=== PATIENT | female | born 1990 | race African-American/Black ===

== ENCOUNTER 2016-06-09 11:45 | Emergency (ER) | payer SELFPAY ==
[2016-06-09 12:05] VITALS: BP 118/59
--- NOTE | 2016-06-09 12:31 | ED Physician Documentation ---
Sore Throat/Dental Pain - HISTORIAN Historian: patient - HPI Stated Complaint: Dental pain Chief Complaint: Dental Pain Additional Information: fx tooth 1 yr ago then another 3 mo ago recent exab pain swelling tenderness Context: Fractured Tooth Associated Symptoms: fever, moderate. denies: unable to swallow, runny nose, congestion Worsened By: heat, cold - ROS CONST: no problems CVS/RESP: none GI/: denies: problems urinating, nausea, vomiting MS/SKIN/LYMPH: muscle aches. denies: rash, leg swelling NEURO/PSYCH: none - PAST HX Past History: other (htn) Allergies/Adverse Reactions: Allergies Allergy/AdvReac Type Severity Reaction Status Date / Time No Known Allergies Allergy Verified 06/09/16 12:00 Home Medications: Ambulatory Orders Medication Instructions Recorded Amoxicillin [Amoxil] 500 mg PO QID #40 capsule 06/09/16 - SOCIAL HX Smoking History: less than 1 pack/day Alcohol Use: none Drug Use: none - FAMILY HX Family History: No - VITAL SIGNS Vital Signs: Vital Signs Temp Pulse Resp BP Pulse Ox 99.3 F 84 16 118/59 97 06/09/16 12:01 06/09/16 12:01 06/09/16 12:01 06/09/16 12:01 06/09/16 12:01 - REVIEWED ASSESSMENTS Nursing Assessment Reviewed: Yes Vitals Reviewed: Yes Dental Pain Physical Exam - EXAM General Appearance: mild distress, moderate distress Head/Neck: head nml inspection, trachea midline, no lymphadenopathy Eyes: eyes nml inspection Mouth/Throat: lips nml, pharynx nml, dental tenderness, gum swelling around teeth. No: gums nml, widespread dental decay Ear/Nose: nml inspection Respiratory: breath sounds nml. No: respiratory distress CVS: reg. rate & rhythm, heart sounds nml Abdomen: soft, non-tender Extremities: non-tender, nml ROM Skin: warm/dry, normal color. No: cyanosis, diaphoresis, jaundice Neuro/Psych: No: weakness, numbness, anxiety Discharge Clincal Impression: fractured teeth w/sepsis Prescriptions: Amoxicillin [Amoxil] 500 mg PO QID #40 capsule Home Medications: Ambulatory Orders Amoxicillin [Amoxil] 500 mg PO QID #40 capsule 06/09/16 Comments: amox pt preferred no analgesics Condition: Good Disposition: HOME, SELF-CARE Decision to Admit: NO Decision Time: 12:34
== END 2016-06-09 12:31 | disposition home or self-care (01) ==
LOC: ED 11:45
DX: K02.9 Dental caries, unspecified (principal)
CPT/HCPCS: 99283

== ENCOUNTER 2016-11-10 12:10 | Emergency (ER) | payer SELFPAY ==
[2016-11-10 12:19] VITALS: BP 121/60
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
== END 2016-11-10 12:34 | disposition home or self-care (01) ==
LOC: ED 12:10
DX: M54.5 Low back pain (principal); G89.11 Acute pain due to trauma; X58.XXXA Exposure to other specified factors, initial encounter; Y93.9 Activity, unspecified; Y99.9 Unspecified external cause status
CPT/HCPCS: 99283

== ENCOUNTER 2018-03-23 18:07 | Emergency (ER) | payer SELFPAY ==
[2018-03-23] MEDS ORDERED: 0.9 % SODIUM CHLORIDE 1,000 ML IV ONE (18:41)
[2018-03-23] MEDS ORDERED: ONDANSETRON HCL/PF 4 MG/ 2ML VIAL IVP ONE (18:41)
[2018-03-23 18:58] LABS: APPEARANCE,URINE CLOUDY (CLEAR); COLOR,URINE YELLOW (YELLOW); OCCULT BLOOD,URINE NEGATIVE (NEGATIVE); UROBILINOGEN URINE 0.2 Eu (0.2-1.0)
[2018-03-23 19:13] LABS: BASOPHILS % 0.5 (0.0-1.5); EOSINOPHILS % 2.9 % (0.0-6.8); MEAN CORPUSCULAR HEMOGLOBIN 28.4 pg (28.0-34.0)
[2018-03-23 19:14] LABS: NEUTROPHILS # 5.6 # k/uL (1.4-7.7)
--- NOTE | 2018-03-23 19:16 | ED Physician Documentation ---
Abdominal Pain - HISTORIAN Historian: patient - HPI Chief Complaint: Abdominal Pain Onset: other (this morning) Context: denies: out of country travel, bad food, recent trauma Quality: pain Further Comments: yes (28 year old female patient presents with complaint of RLQ pain. Patient reports pain started this morning. Has had multiple episodes of vomiting today. Has not eaten due to nausea and vomiting. Diarrhea today, denies fever or chills. LMP 03/04/2018 Last regular BM >2 days ago.) - ROS CONST: no problems GI/: none CVS/RESP: none EYES/ENT: none MS/SKIN/LYMPH: none NEURO/PSYCH: none - SOCIAL HX Smoking History: non-smoker - FAMILY HX Family History: denies: none - PAST HX Past History: none Home Medications: Ambulatory Orders Medication Instructions Recorded NK 11/10/16 Allergies/Adverse Reactions: Allergies Allergy/AdvReac Type Severity Reaction Status Date / Time No Known Allergies Allergy Verified 11/10/16 12:19 - VITAL SIGNS Vital Signs: Vital Signs Temp Pulse Resp BP Pulse Ox 97.2 F L 67 12 120/73 98 03/23/18 18:10 03/23/18 19:40 03/23/18 19:40 03/23/18 19:40 03/23/18 19:40 - REVIEWED ASSESSMENTS Nursing Assessment Reviewed: Yes Vitals Reviewed: Yes ED Results Lab/Radiology - Lab Results Lab Results: Lab Results 03/23/18 03/23/18 03/23/18 19:00 19:00 18:30 WBC 8.90 K/ul K/ul (4.00-12.00) RBC 4.60 M/ul M/ul (3.90-5.20) Hgb 13.1 g/dL g/dL (12.0-16.0) Hct 40.1 % % (34.5-46.5) MCV 87.0 fl fl (80.0-100.0) MCH 28.4 pg pg (28.0-34.0) MCHC 32.7 g/dL g/dL (30.0-36.0) RDW 12.8 % % (11.3-14.3) Plt Count 322 K/mm3 K/mm3 (130-400) Neut % (Auto) 63.1 % % (39.0-79.0) Lymph % (Auto) 29.5 % % (16.0-50.0) Rush % (Auto) 4.0 % % (0.0-11.0) Eos % (Auto) 2.9 % % (0.0-6.8) Baso % (Auto) 0.5 (0.0-1.5) Neut # (Auto) 5.6 # k/uL # k/uL (1.4-7.7) Lymph # (Auto) 2.6 # k/uL # k/uL (0.6-4.0) Rush # (Auto) 0.4 # k/uL # k/uL (0.0-0.9) Eos # (Auto) 0.3 # k/uL # k/uL (0.0-0.6) Baso # (Auto) 0.0 # k/uL # k/uL (0.0-0.5) Sodium 141 mmol/L mmol/L (136-145) Potassium 3.4 mmol/L L mmol/L (3.5-5.1) Chloride 102 mmol/L mmol/L (98-107) Carbon Dioxide 27 mmol/L mmol/L (22-30) BUN 6 mg/dL L mg/dL (7-17) Creatinine 0.82 mg/dL mg/dL (0.52-1.04) Est GFR ( Amer) > 60 (60 - ) Est GFR (Non-Af Amer) > 60 (60 - ) Glucose 108 mg/dL H mg/dL (74-106) Calcium 9.2 mg/dL mg/dL (8.4-10.2) Total Bilirubin 0.3 mg/dL mg/dL (0.2-1.3) AST 22 U/L U/L (15-46) ALT 21 U/L U/L (13-69) Alkaline Phosphatase 52 U/L U/L (38-126) Total Protein 7.9 g/dL g/dL (6.3-8.2) Albumin 4.3 g/dL g/dL (3.5-5.0) Urine Color Yellow (YELLOW) Urine Appearance Cloudy H (CLEAR) Urine pH 6.0 (5.0 - 8.0) Ur Specific [place] >=1.030 H (1.010-1.030) Urine Protein 1+ mg/dL H mg/dL (NEGATIVE) Urine Ketones 2+ mg/dL H mg/dL (NEGATIVE) Urine Occult Blood Negative (NEGATIVE) Urine Nitrite Negative (NEGATIVE) Urine Bilirubin 1+ H (NEGATIVE) Urine Urobilinogen 0.2 Eu Eu (0.2-1.0) Ur Leukocyte Esterase Trace H (NEGATIVE) Urine Glucose Negative mg/dL mg/dL (NEGATIVE) - Radiology Radiology Impressions: Abdomen complete History: Epigastric and right abdominal pain with vomiting Findings: Morbid obesity and normal bowel gas pattern are observed. No abnormal calcifications are observed. Mild right hemidiaphragm elevation is present. There is no free air. Impression: Normal bowel gas pattern. 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 by: Renato Albright - Orders Orders: ED Orders Category Date Time Status Place IV Lock 1T Care 03/23/18 18:30 Ordered ABD COMPLETE [RAD] Stat Exams 03/23/18 Ordered CBC/PLATELET/DIFF Stat Lab 03/23/18 19:00 Completed CMP Stat Lab 03/23/18 19:00 Completed UA MACRO DIP ONLY Routine Lab 03/23/18 18:30 Completed UA W/MICRO IF INDICATED Stat Lab 03/23/18 19:18 Ordered URINE HCG Stat Lab 03/23/18 Ordered 0.9 % Sodium Chloride [Normal Saline] 1,000 ml Med 03/23/18 18:41 Discontinued IV NOW Magnesium Hydroxide [Milk of Magnesia] Med 03/23/18 20:08 Once 1,200 mg PO NOW ONE Ondansetron HCl/Pf [Zofran] Med 03/23/18 18:41 Discontinued 4 mg IVP NOW ONE Abdominal Pain Physical Exam - Physical Exam General Appearance: mild distress RESPIRATORY: no resp distress, chest non-tender, breath sounds normal CVS: reg rate & rhythm, heart sounds normal, equal pulses, no murmur, no gallop, PMI nml, no JVD, no friction rub, 24 ABDOMEN: soft, no organomegaly, normal bowel sounds, no abdominal bruit, no distension, tenderness (RLQ), McBurney's point tenderne, obturator sign (positive). 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 Choose more whole grain breads, cereals and rice. Select more raw fruits and vegetables -- eat the peel, if appropriate. Drink six to eight glasses of water each day. Limit highly refined and processed foods. Over the counter Laxative as needed Gas-ex, simethicone, or beano as needed per package directions for gas pain Return to the emergency department or call your doctor, if you are having severe abdominal pain, fever >101.0, or if there is blood in the vomit or diarrhea, or you cannot keep down liquids or solid food. Condition: Stable Disposition: 01 HOME, SELF-CARE Decision to Admit: NO Decision Time: 20:23
[2018-03-23 19:28] LABS: eGFR (Non-African) > 60
[2018-03-23] MEDS ORDERED: MAGNESIUM HYDROXIDE 2,400 MG/30 ML UDC PO ONE (20:08)
[2018-03-23 20:28] VITALS: BP 114/68
--- NOTE | 2018-03-24 06:06 | Diagnostic Imaging Report ---
CAR FENTON (HUMAN RESOURCE ADVISOR) - ER [facility] [address] [facility].[address] [id number] Report Submission Date: Mar 23, 2018 8:18:24 PM PRODUCTION LEAD Patient Study Name: KEM SEYMOUR Date: Mar 23, 2018 7:52:00 PM PRODUCTION LEAD Modality Type: DX Gender: F Description: ABD COMPLETE : 86 Institution: [facility] Physician: CAR FENTON (HUMAN RESOURCE ADVISOR) - ER Abdomen complete History: Epigastric and right abdominal pain with vomiting Findings: Morbid obesity and normal bowel gas pattern are observed. No abnormal calcifications are observed. Mild right hemidiaphragm elevation is present. There is no free air. Impression: Normal bowel gas pattern. Electronically signed on Mar 23, 2018 8:18:24 PM PRODUCTION LEAD by: Renato ZURITA
== END 2018-03-23 20:45 | disposition home or self-care (01) ==
LOC: ED 18:07
DX: R10.31 Right lower quadrant pain (principal); R10.13 Epigastric pain
CPT/HCPCS: 36415; 74019; 80053; 81002; 85025; 96374; 99283; 99284; J2405; J7030; S1016

== ENCOUNTER 2018-11-01 10:20 | Emergency (ER) | payer SELFPAY ==
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
[2018-11-01 10:43] VITALS: BP 135/75
[2018-11-01] MEDS: cefTRIAXone SODIUM 250 MG INJ IM ONE (10:46)
[2018-11-01] MEDS: AZITHROMYCIN 250 MG TABLET PO ONE (10:46)
[2018-11-01] MEDS: Lidocaine 1% 5ml 10 MG/ML VIAL IJ ONE (10:46)
[2018-11-01] MEDS: ONDANSETRON HCL 4 MG TAB.RAPDIS PO ONE (10:46)
[2018-11-01 14:43] LABS: APPEARANCE,URINE CLEAR (CLEAR); COLOR,URINE AMBER (YELLOW); OCCULT BLOOD,URINE 3+ (NEGATIVE)
== END 2018-11-01 10:54 | disposition home or self-care (01) ==
LOC: ED 10:20
DX: Z20.2 Contact with and (suspected) exposure to infections with a predominantly sexual mode of transmission (principal); N39.0 Urinary tract infection, site not specified; R11.2 Nausea with vomiting, unspecified
CPT/HCPCS: 81002; 87491; 87591; 96372; 99284; A9270; J0696